=== PATIENT | female | born 1995 | race Asian ===

== ENCOUNTER → 2018-10-13 13:04 | Outpatient (CLI) | payer OTHER | END | disposition home or self-care (01) | LOC: AMB 13:04 | DX: Z04.3 Encounter for examination and observation following other accident (principal) ==

== ENCOUNTER 2018-10-13 14:07 | Emergency (ER) | payer OTHER ==
[~2018-10-13] VITALS: Ht 139.7 cm; Wt 40.4 kg
[2018-10-13 17:30] VITALS: BP 99/58; TEMP 98
== END 2018-10-13 17:32 | disposition home or self-care (01) ==
LOC: ED 14:07
DX: S40.022A Contusion of left upper arm, initial encounter (principal); S40.021A Contusion of right upper arm, initial encounter; M79.621 Pain in right upper arm; V49.9XXA Car occupant (driver) (passenger) injured in unspecified traffic accident, initial encounter
CPT/HCPCS: 80307; 99283

== ENCOUNTER 2018-10-25 20:27 | Emergency (ER) | payer OTHER ==
[~2018-10-25] VITALS: Ht 139.7 cm; Wt 39.9 kg
[2018-10-25 22:43] VITALS: BP 104/58; TEMP 98.6
== END 2018-10-25 22:44 | disposition home or self-care (01) ==
LOC: ED 20:27
DX: M54.2 Cervicalgia (principal); R07.89 Other chest pain; M54.9 Dorsalgia, unspecified; M94.0 Chondrocostal junction syndrome [Tietze]
CPT/HCPCS: 99283